=== PATIENT | male | born 1955 | race Hispanic/Latino ===

== ENCOUNTER 2018-06-11 13:40 | Emergency (ER) | payer BC ==
[2018-06-11 13:46] VITALS: BMI 27.8
--- NOTE | 2018-06-11 14:35 | ED PDOC ---
Arrival/HPI - General Chief Complaint: Male Genitourinary Time Seen by Provider: 06/11/18 14:17 Historian: Patient - History of Present Illness Narrative History of Present Illness (Text): 06/11/18 14:31 62 year old male, whose past medical history includes colon tumor removal 2015, and prostate problems, presents to the emergency department complaining of urinary retention for the past couple of days. He has been on Flomax, but ran out last week, got more this morning, but he still unable to urinate. He denies fevers, chills, headache, dizziness, chest pain, shortness of breath, dyspnea on exertion, cough, nausea, vomiting, diarrhea, back pain, neck pain, or any other complaint. Urologist: Time/Duration: < week Symptom Course: Unchanged Activities at Onset: Light Past Medical History - Provider Review Nursing Documentation Reviewed: Yes - Infectious Disease Hx of Infectious Diseases: None - Cardiac Hx Hypertension: Yes - Gastrointestinal Hx Gastroesophageal Reflux: Yes - Genitourinary/Gynecological Hx Prostate Problems: Yes - Psychiatric Hx Substance Use: No - Surgical History Other/Comment: colon tumor removal 2016 - Anesthesia Hx Anesthesia Reactions: No Hx Malignant Hyperthermia: No - Suicidal Assessment Feels Threatened In Home Enviroment: No Family/Social History - Physician Review Nursing Documentation Reviewed: Yes Family/Social History: No Known Family HX Smoking Status: Never Smoked Hx Alcohol Use: Yes Frequency of alcohol use: Socially Hx Substance Use: No Allergies/Home Meds Allergies/Adverse Reactions: Allergies No Known Allergies Allergy (Verified 05/10/12 12:42) Review of Systems - Physician Review All systems were reviewed & negative as marked: Yes - Review of Systems Constitutional: absent: Fevers Respiratory: absent: SOB, Cough Cardiovascular: absent: Chest Pain Gastrointestinal: absent: Abdominal Pain, Diarrhea, Nausea, Vomiting Genitourinary Male: Other (unable to urinate) Musculoskeletal: absent: Back Pain, Neck Pain Skin: absent: Rash Neurological: absent: Dizziness Physical Exam Vital Signs Reviewed: Yes Vital Signs Temp Pulse Resp BP Pulse Ox 06/11/18 13:40 98.8 F 85 19 167/85 H 98 Temperature: Afebrile Blood Pressure: Hypertensive Pulse: Regular Respiratory Rate: Normal Appearance: Positive for: Well-Appearing, Non-Toxic, Comfortable Pain Distress: None Mental Status: Positive for: Alert and Oriented X 3 - Systems Exam Head: Present: Atraumatic, Normocephalic Pupils: Present: PERRL Extroacular Muscles: Present: EOMI Conjunctiva: Present: Normal Mouth: Present: Moist Mucous Membranes Neck: Present: Normal Range of Motion Respiratory/Chest: Present: Clear to Auscultation, Good Air Exchange. No: Respiratory Distress, Accessory Muscle Use Cardiovascular: Present: Regular Rate and Rhythm, Normal S1, S2. No: Murmurs Abdomen: Present: Tenderness (suprapubic tenderness ), Distention. No: Peritoneal Signs Back: Present: Normal Inspection Upper Extremity: Present: Normal Inspection. No: Cyanosis, Edema Lower Extremity: Present: Edema (1+ pitting edema) Neurological: Present: GCS=15, CN II-XII Intact, Speech Normal Skin: Present: Warm, Dry, Normal Color. No: Rashes Psychiatric: Present: Alert, Oriented x 3, Normal Insight, Normal Concentration Medical Decision Making ED Course and Treatment: 06/11/18 14:35 Impression: 62 year old male who presents to the emergency department with urinary retention. Plan: -- Urine culture -- Wilkerson -- Urinalysis -- Reassess and disposition Prior Visits: Notes and results from previous visits were reviewed. Progress Notes: 06/11/18 16:26 Patient produced 1L of or urine through Wilkerson catheter. Urine is negative for infection. Patient will be discharge home with Wilkerson connector leg bag and follow up with urologist in the morning. - Scribe Statement The provider has reviewed the documentation as recorded by the Min Ochoa Provider Scribe Attestation: All medical record entries made by the Min were at my direction and personally dictated by me. I have reviewed the chart and agree that the record accurately reflects my personal performance of the history, physical exam, medical decision making, and the department course for this patient. I have also personally directed, reviewed, and agree with the discharge instructions and disposition. Disposition/Present on Arrival - Present on Arrival Any Indicators Present on Arrival: No History of DVT/PE: No History of Uncontrolled Diabetes: No Urinary Catheter: No History of Decub. Ulcer: No History Surgical Site Infection Following: None - Disposition Have Diagnosis and Disposition been Completed?: Yes Diagnosis: Urinary retention Disposition: HOME/ ROUTINE Disposition Time: 17:03 Patient Plan: Discharge Condition: GOOD Discharge Instructions (ExitCare): Wilkerson Catheter, Male, Urinary Retention Additional Instructions: Follow up with your urology tomorrow and continue your flomax. Prescriptions: Ciprofloxacin HCl [Cipro] 250 mg PO BID 7 Days #14 tablet Forms: [employer] (E[place]ian)
[2018-06-11 15:14] VITALS: TEMP 98.1
[2018-06-11 15:41] LABS: URINE BILIRUBIN NEGATIVE (NEGATIVE); URINE BLOOD NEGATIVE (NEGATIVE); URINE GLUCOSE (UA) NEGATIVE (NEGATIVE); URINE LEUKOCYTE ESTERASE NEGATIVE Leu/uL (NEGATIVE); URINE PROTEIN 30 mg/dL (<30 mg/dL); URINE UROBILINOGEN 0.2 E.U./dL (<1 E.U./dL)
[2018-06-11 15:57] LABS: URINE APPEARANCE CLEAR (CLEAR); URINE BACTERIA FEW /hpf; URINE COLOR YELLOW (YELLOW); URINE RBC NEGATIVE /hpf (0-2)
[2018-06-11 17:06] VITALS: BP 148/82; PULSE 78; RESP 17; O2SAT 99
== END 2018-06-11 17:03 | disposition home or self-care (01) ==
LOC: ED 13:40
DX: R33.9 Retention of urine, unspecified (principal)